=== PATIENT | female | born 1985 | race Caucasian/White ===

== ENCOUNTER 2018-04-17 09:03 | Emergency (ER) | payer OTHER, MEDICAID, SELFPAY ==
[2018-04-17 09:12] VITALS: BP 88/62; PULSE 55; RESP 20; TEMP 36.5; O2SAT 99; BMI 21.4
--- NOTE | 2018-04-17 09:18 | ED_ITS ---
HPI - Nausea/Vomiting/Diarrhea General Chief complaint: OB/Uterine Contractions Stated complaint: syncope Time Seen by Provider: 04/17/18 09:15 Source: patient and EMS Mode of arrival: EMS Limitations: no limitations History of Present Illness HPI Narrative: Otherwise healthy 32-year-old female with history of morning sickness with prior pregnancies presents to the emergency department with nausea vomiting since yesterday and a near syncopal episode today. She felt warm and flushed and lowered herself to the ground and EMS was called. On their arrival they found her systolic blood pressure in the 90s. They placed an IV and administered a few 100 cc of fluid prior to her arrival. She is a at 13 weeks and denies pelvic pain or vaginal bleeding or discharge. She is otherwise well MD complaint: nausea and vomiting Onset (ago): hour(s) Description of Vomiting: watery Description of Diarrhea: none Associated Abdominal Pain: No Relieving factors: none Exacerbating factors: none Associated symptoms: nausea/vomiting and fatigue Related Data Home Medications Medication Instructions Recorded Confirmed levonorgestrel [Mirena] #0 11/06/17 Previous Rx's Medication Instructions Recorded ondansetron 4 mg SUBLINGUAL Q6HP PRN #14 odt 11/06/17 nitrofurantoin monohyd/m-cryst 1 cap PO Q12H 7 Days #14 cap 04/17/18 [Macrobid] ondansetron [Zofran ODT] 4 mg PO Q6H PRN #14 tab 04/17/18 Allergies Allergy/AdvReac Type Severity Reaction Status Date / Time No Known Drug Allergies Allergy Verified 04/17/18 09:15 Review of Systems Review of Systems All systems reviewed & are unremarkable except as noted in HPI and below Constitutional Denies chills, Reports fatigue, Denies fever(s), Denies lethargy and Denies weakness Eyes Denies change in vision, Denies eye discharge, Denies irritation and Denies loss of vision ENT Ears, Nose, Mouth, and Throat: Denies change in voice, Denies neck pain and Denies sore throat Cardiovascular Denies chest pain, Reports syncope (Near syncope), Denies irregular heart rhythm , Denies lightheadedness, Denies palpitations, Denies dyspnea, Denies dyspnea on exertion and Denies orthopnea Respiratory Denies cough, Denies dyspnea, Denies dyspnea on exertion and Denies wheezing Gastrointestinal Gastrointestinal: Denies abdominal pain, Denies change in bowel habits, Denies diarrhea, Denies nausea and Denies vomiting Genitourinary Denies hematuria, Denies flank pain, Denies urinary incontinence and Denies urinary urgency Musculoskeletal Denies neck pain Integumentary/Breasts Denies pruritus, Denies erythema, Denies rash and Denies wounds Neurologic Denies confusion, Reports syncope (Near syncope), Denies loss of vision and Denies weakness Psychiatric Denies anxiety, Denies confusion, Denies depression, Denies homicidal ideation and Denies suicidal ideation Endocrine Reports fatigue and Denies palpitations Hematologic/Lymphatic Denies easy bruising Allergic/Immunologic Denies wheezing PFSH Surgical History Status post delivery Social History Smoking Status: Never smoker Exam Initial Vital Signs Initial Vital Signs: Vital Signs Temperature 97.7 F 04/17/18 09:12 Pulse Rate 55 L 04/17/18 09:12 Respiratory Rate 20 04/17/18 09:12 Blood Pressure 88/62 L 04/17/18 09:12 Pulse Oximetry 99 04/17/18 09:12 Const General: cooperative and well developed Nutritional Appearance: well nourished Orientation: alert, awake, oriented x3 and not confused HENNM Head: normocephalic and atraumatic Ears: external ears normal and TM's normal bilaterally Nose: external nose normal and No nasal discharge Face and sinus: sinuses nontender, face symmetric, no sinus tenderness and No dry mucous membranes Mouth: oral mucosae normal and moist mucous membranes Teeth and gingiva: dentition normal Throat: tonsils normal and uvula midline Eyes General: appearance normal, both eyes and all related structures Eyelids: eyelids normal Conjunctivae: conjunctivae normal Sclera: sclerae normal Pupils: PERRL EOM: EOM intact bilaterally Neck Neck: normal visual inspection, trachea midline, No lymphadenopathy, No midline deformity and No JVD Lymphatic: No lymphedema Chest Chest: normal inspection of the chest Resp Effort & Inspection: normal respiratory effort, able to speak in complete sentences, no respiratory distress and no use of accessory muscles Auscultation: clear to auscultation bilaterally, no rales, no rhonchi and no wheezes Cardio Rate: regular rate Rhythm: regular rhythm Heart Sounds: no click, no gallops, no murmurs and no rubs Pulses: normal peripheral pulses GI Inspection: non-distended Palpation: soft, no hepatosplenomegaly, No guarding, No pulsatile mass and No tender Auscultation: normal bowel sounds Back/Spine/Pelvis Back: No CVA tenderness Cervical Spine: cervical ROM normal and No pain with cervical ROM Thoracic/Lumbar Spine: thoracic and lumbar spine normal to inspection Skin General: no rashes or lesions noted, No jaundice and No petechiae Neuro General: alert, oriented x3, gait normal and no focal motor deficits Speech: speech normal Extrem General: full ROM, no clubbing, cyanosis or edema, no pedal edema and no calf tenderness Psych Appearance: well kempt Mental Status: mental status grossly normal Attitude: cooperative Thought Content: normal and suicidality Judgment: judgment good Course Orders Ordered: ED Orders 04/17/18 09:00 Complete Blood Count AUTO DIFF Stat Comprehensive Metabolic Panel Stat Ketones (Beta-Hydroxybutyrate) Stat 04/17/18 10:15 Urine Microscopic Stat Discontinued Medications Sodium Chloride (Normal Saline 0.9%) 1,000 mls @ 1,000 mls/hr IV BOLUS ONE Stop: 04/17/18 10:14 Last Infusion: 04/17/18 10:05 Dose: 0 mls/hr Admin: 04/17/18 09:49 Dose: 1,000 mls/hr Sodium Chloride (Normal Saline 0.9%) 1,000 mls @ 1,000 mls/hr IV BOLUS PRN PRN Reason: Fluid replacement Last Infusion: 04/17/18 11:58 Dose: 0 mls/hr Admin: 04/17/18 10:52 Dose: 1,000 mls/hr Ondansetron HCl (Zofran) 4 mg IV NOW ONE Stop: 04/17/18 09:16 Last Admin: 04/17/18 09:49 Dose: 4 mg Reevaluation(s) Reevaluation #1: Near complete resolution of symptoms after fluids and Zofran Vital Signs - 8 hr 04/17/18 09:12 04/17/18 09:54 04/17/18 11:05 Temperature 97.7 F Pulse Rate 55 L 66 62 Respiratory Rate 20 16 16 Blood Pressure 88/62 L Blood Pressure [Left Arm] 96/50 L 90/50 L Pulse Oximetry 99 100 100 04/17/18 12:07 Temperature Pulse Rate 77 Respiratory Rate 16 Blood Pressure 97/59 L Blood Pressure [Left Arm] Pulse Oximetry 99 MDM - Nausea/Vomiting/Diarrhea Lab Data Result diagrams: 04/17/18 09:00 04/17/18 09:00 Lab Results 04/17/18 04/17/18 04/17/18 Range/Units 09:00 09:00 10:15 WBC 9.3 (4.5-11.0) X10^3/uL RBC 4.37 (4.0-5.2) X10^6/uL Hgb 13.7 (12.0-16.0) g/dL Hct 39.0 (36-46) % MCV 89.3 (80-100) fL MCH 31.3 (26-34) PG MCHC 35.0 (30-36) % RDW 12.6 (11.6-14.8) % Plt Count 224 (150-400) X10^3/uL Neut % (Auto) 69.3 (50-75) % Lymph % (Auto) 22.6 L (25-40) % [place] % (Auto) 6.0 (3-14) % Eos % (Auto) 1.8 L (2-4) % Baso % (Auto) 0.3 (0-2) % Neut # (Auto) 6400 H (8353-7867) /uL Sodium 138 (137-145) mmol/L Potassium 3.6 (3.4-5.1) mmol/L Chloride 101 (98-107) mmol/L Carbon Dioxide 23 (22-32) mmol/L BUN 10 (7-17) mg/dL Creatinine 0.60 (0.52-1.04) mg/dL Estimated GFR > 60.0 (>60) mL/min BUN/Creatinine Ratio 16.7 (6-22) Glucose 109 H (70-100) mg/dL Calcium 9.8 (8.4-10.2) mg/dL Total Bilirubin 0.8 (0.2-1.3) mg/dL AST 18 (14-36) IU/L ALT 19 (9-52) IU/L Alkaline Phosphatase 49 (38-126) U/L Total Protein 7.9 (6.3-8.2) g/dL Albumin 4.5 (3.5-5.0) g/dL Globulin 3.4 (1.7-4.1) g/dL Albumin/Globulin Ratio 1.3 (1.0-2.8) Urine RBC None seen (0-5/HPF) Urine WBC 5-10/hpf H (0-5/HPF) Ur Squamous Epith Cells 5-10 /hpf H Urine Bacteria Moderate (10-30) H (None) Ur Culture Indicated? Cult not indicated Micro UA Comment Not Reportable Ketones 0.42 H (<0.27) mmol/L Discharge Plan Departure Patient Disposition: Home, Self-Care Clinical Impression: UTI (urinary tract infection), Vomiting Discharge Date/Time: 04/17/18 12:10 Interventions: ED Discharge Assessment Last Done: 04/17/18 12:07 Instructions: DI for Urinary Tract Infection (UTI) Activity Restrictions/Additional Instructions: 1. Drink plenty of fluids with frequent small sips. 2. For the next 24 hours a clear liquid diet is advised. After that please employ a brat diet which would include bananas, rice, apples, toast. 3. Please take medications as directed. 4. Please follow-up with your doctor in the next 1-2 days. Call the office for an appointment. 5. Please return to the emergency Department for any worsening or persistent symptoms, such as increasing pain or fever. Your prescriptions have been electronically transmitted to the [facility] here in [place] at your request Prescriptions: New ondansetron [Zofran ODT] 4 mg tablet,disintegrating 4 mg PO Q6H PRN (Reason: nausea and vomiting) Qty: 14 RF: 0 nitrofurantoin monohyd/m-cryst [Macrobid] 100 mg capsule 1 cap PO Q12H 7 Days Qty: 14 RF: 0 No Action levonorgestrel [Mirena] 1 EACH intrauterine device Qty: 0 RF: 0 ondansetron 4 MG tablet,disintegrating 4 mg Sublingual Q6HP PRNQty: 14 RF: 0
[2018-04-17 09:21] LABS: Add Manual Diff / Slide Review NO; Basophils Percent Auto 0.3 % (0-2); Eosinophils Percent Auto 1.8 % (2-4); Hemoglobin 13.7 g/dL (12.0-16.0); Lymphocytes Percent Auto 22.6 % (25-40); Mean Corpuscular Hemoglobin 31.3 PG (26-34); Mean Corpuscular Volume 89.3 fL (80-100); Neutrophils Absolute Auto 6400 /uL (3000-5900); Neutrophils Percent Auto 69.3 % (50-75); Platelet Count 224 X10^3/uL (150-400); Red Blood Cell Count 4.37 X10^6/uL (4.0-5.2); Red Cell Distribution Width 12.6 % (11.6-14.8); White Blood Cell Count 9.3 X10^3/uL (4.5-11.0)
[2018-04-17 09:23] LABS: HEMOLYSIS < 15 (0-50)
[2018-04-17 09:28] LABS: Alanine Aminotransferase 19 IU/L (9-52); Albumin 4.5 g/dL (3.5-5.0); Albumin Globulin Ratio 1.3 (1.0-2.8); Alkaline Phosphatase 49 U/L (38-126); Aspartate Aminotransferase 18 IU/L (14-36); BUN Creatinine Ratio 16.7 (6-22); Bilirubin Total 0.8 mg/dL (0.2-1.3); Blood Urea Nitrogen 10 mg/dL (7-17); Calcium 9.8 mg/dL (8.4-10.2); Carbon Dioxide 23 mmol/L (22-32); Chloride 101 mmol/L (98-107); Estimated Glomerular Filt Rate > 60.0 mL/min (>60); Globulin 3.4 g/dL (1.7-4.1); Glucose 109 mg/dL (70-100); Potassium 3.6 mmol/L (3.4-5.1); Sodium 138 mmol/L (137-145); Total Protein 7.9 g/dL (6.3-8.2)
[2018-04-17 09:46] LABS: Ketones (Beta-Hydroxybutyrate) 0.42 mmol/L (<0.27)
[2018-04-17] MEDS: ONDANSETRON 4 MG/2 ML INJ IV (09:49)
[2018-04-17] MEDS: SODIUM CHLORIDE 0.9% 1,000 ML 1000 ML IV ×2 (09:49→10:52)
[2018-04-17 09:54] VITALS: BP 96/50; PULSE 66; RESP 16; O2SAT 100
--- NOTE | 2018-04-17 10:13 | PC.NURSE ---
Patient reports she was feeling nauseous this morning and had a near syncopal episode at the grocery store today. Is 13 weeks with prior history of same with pregnancies. P:1.
--- NOTE | 2018-04-17 10:37 | PC.NURSE ---
Patient states she feels shaky is pale and hands are cold and white. I gave her a warm blanket. Can eat and drink per MD Dailey, starting with clear liquids working up to food. I gave her some water and juice and after tolerating that I gave her a sandwich, fruit, and crackers. Patient tolerated and states she feels better, less shaky.
[2018-04-17 10:43] LABS: RBC Urine None Seen (0-5/HPF)
[2018-04-17 10:56] LABS: Bacteria Urine Moderate (10-30); Culture Indicated Urine Cult Not Indicated; Squamous Epithelial Cell Urine 5-10 /HPF; WBC Urine 5-10/HPF (0-5/HPF)
[2018-04-17 11:05] VITALS: BP 90/50; PULSE 62; RESP 16; O2SAT 100
[2018-04-17 12:07] VITALS: BP 97/59; PULSE 77; RESP 16; O2SAT 99
== END 2018-04-17 12:10 | disposition home or self-care (01) ==
PROVIDERS: Emergency Provider Emergency Medicine; PCP Family Medicine
DX: O23.41 Unspecified infection of urinary tract in pregnancy, first trimester (principal); O21.9 Vomiting of pregnancy, unspecified; Z3A.13 13 weeks gestation of pregnancy
CPT/HCPCS: 36591; 80053; 81003; 81015; 82009; 85025; 96361; 96374; 99283; 99285; J2405

== ENCOUNTER → 2020-10-08 11:08 | Outpatient (CLI) | payer OTHER, MEDICAID, SELFPAY ==
[2020-10-08 11:45] LABS: COVID19 -Nasal RAPID Negative (Negative)
== END ==
PROVIDERS: Visit Provider Nurse Practitioner
DX: Z11.59 Encounter for screening for other viral diseases (principal)
CPT/HCPCS: 87635

== ENCOUNTER 2021-02-25 19:25 | Emergency (ER) | payer OTHER, MEDICAID, SELFPAY ==
[2021-02-25 19:31] VITALS: BP 136/86; PULSE 78; RESP 18; TEMP 37.1; O2SAT 99
--- NOTE | 2021-02-25 19:34 | ED.HA ---
HPI - Headache General Chief Complaint: Headache Stated Complaint: headache x3 days,not feeling good Time Seen by Provider: 02/25/21 19:34 Mode of arrival: Ambulatory Limitations: no limitations History of Present Illness HPI Narrative: 35F nonsmoker with history of anxiety or presents with a 2-3 days of gradually worsening right-sided headache. She states that it is a squeezing-type pain and seems to be worse with bright lights, loud noise and exertion. She has had nausea but denies any vomiting. She has no neck pain, fever or chills. She denies any trauma or recent injuries. She has had no chest pain or shortness of breath. She denies any recent illness nor any dietary or medication change. MD Complaint: headache Onset (ago): day(s) Onset description: gradual Location: right Severity: moderate Severity scale (1-10): 7 Quality: aching and throbbing Relieving factors: rest and dark room Exacerbating factors: light and noise Context: occurred at rest Associated symptoms: photophobia and sensitivity to sound Treatments prior to arrival: acetaminophen and ibuprofen Related Data Allergies Allergy/AdvReac Type Severity Reaction Status Date / Time No Known Drug Allergies Allergy Verified 10/08/20 10:49 Review of Systems Constitutional Constitutional: Denies chills, Denies fatigue, Denies fever(s), Denies frequent falls, Reports headache(s), Denies lethargy and Denies weakness Eyes Eyes: Denies change in vision, Denies eye discharge, Denies irritation and Denies loss of vision ENT Ears, Nose, Mouth, and Throat: Denies change in voice, Denies dizziness, Reports headache(s), Denies neck pain, Denies sore throat and Denies throat swelling Cardiovascular Cardiovascular: Denies chest pain, Denies irregular heart rhythm, Denies lightheadedness, Denies palpitations, Denies dyspnea, Denies dyspnea on exertion and Denies orthopnea Respiratory Respiratory: Denies cough, Denies dyspnea, Denies dyspnea on exertion and Denies wheezing Gastrointestinal Gastrointestinal: Denies abdominal pain, Denies change in bowel habits, Denies diarrhea, Denies nausea and Denies vomiting Musculoskeletal Musculoskeletal: Denies neck pain and Denies numbness Integumentary/Breasts Skin/Breast: Denies pruritus, Denies erythema, Denies rash and Denies wounds Neurologic Neurologic: Denies behavioral changes, Denies confusion, Denies dizziness, Denies frequent falls, Reports headache(s), Denies loss of vision, Denies numbness and Denies weakness Psychiatric Psychiatric: Denies anxiety, Denies behavioral changes, Denies confusion, Denies depression, Denies homicidal ideation and Denies suicidal ideation Endocrine Endocrine: Denies fatigue, Denies flushing and Denies palpitations Hematologic/Lymphatic Hematologic/Lymphatic: Denies easy bruising Allergic/Immunologic Allergic/Immunologic: Denies urticaria, Denies throat swelling and Denies wheezing Patient History Medical History No significant medical problems Surgical History Status post delivery Social History Smoking Status: Never smoker Smoking Status: Never smoker Substance Use Type: marijuana Exam Narrative Exam Narrative: GENERAL: [35] year old patient appears stated age. Well-nourished, well-developed patient, in mild distress. HEAD: Atraumatic. Normocephalic. EYES: Pupils equal round and reactive. Extraocular motions intact. No scleral icterus. No injection or drainage. ENT: Nose without bleeding, purulent drainage. Throat without erythema, tonsillar hypertrophy or exudate. Airway patent. NECK: Trachea midline. Non tender. No meningeal signs CARDIOVASCULAR: Regular rate and rhythm without murmurs, gallops, or rubs. RESPIRATORY: Clear to auscultation. Breath sounds equal bilaterally. No wheezes, rales, or rhonchi. GASTROINTESTINAL: Abdomen soft, non-tender, nondistended. EXTREMITIES: No edema or joint tenderness. BACK: Nontender without deformity or crepitance. No flank tenderness. NEURO: AOx3. SKIN: No rash or erythema of visible areas NIH Stroke Scale 1a. LOC: Patient is alert and keenly responsive (0) 1b. LOC Questions: Patient answers both LOC questions accurately (0) 1c. LOC Commands: Patient performs both tasks correctly (0) 2. Best Gaze: Normal (0) 3. Visual: No visual loss (0) 4. Facial palsy: Normal symmetrical movements (0) 5. Motor arm: No drift (0) 6. Motor leg: No drift (0) 7. Limb ataxia: Absent (0) 8. Sensory: Normal (0) 9. Best language: No aphasia; normal (0) 10. Dysarthria: Normal (0) 11. Extinction and inattention: No abnormality (0) NIHSS: 0 Initial Vital Signs Initial Vital Signs: Vital Signs Temperature 98.8 F 02/25/21 19:31 Pulse Rate 78 02/25/21 19:31 Respiratory Rate 18 02/25/21 19:31 Blood Pressure 136/86 02/25/21 19:31 Pulse Oximetry 99 02/25/21 19:31 Course Orders Ordered: ED Orders 02/25/21 20:24 CT head/brain wo con Stat Discontinued Medications Diphenhydramine HCl (Diphenhydramine 50 Mg/Ml Vial) 25 mg IV NOW ONE Stop: 02/25/21 19:58 Last Admin: 02/25/21 20:03 Dose: 25 mg Documented by: DANIELLA Sodium Chloride (Normal Saline 0.9%) 1,000 mls @ 1,000 mls/hr IV BOLUS ONE Stop: 02/25/21 20:56 Last Infusion: 02/25/21 21:30 Dose: 0 mls/hr Documented by: Admin: 02/25/21 20:03 Dose: 1,000 mls/hr Documented by: DANIELLA Ketorolac Tromethamine (Ketorolac 60 Mg/2 Ml Vial) 15 mg IV NOW ONE Stop: 02/25/21 21:11 Last Admin: 02/25/21 21:26 Dose: 15 mg Documented by: DANIELLA Metoclopramide HCl (Metoclopramide 10 Mg/2 Ml Inj) 10 mg IV NOW ONE Stop: 02/25/21 19:58 Last Admin: 02/25/21 20:03 Dose: 10 mg Documented by: DANIELLA Reevaluation(s) Reevaluation #1: patient has a near complete resolution of symptoms with above stated therapies Vital Signs Vital signs: Vital Signs - 8 hr 02/25/21 19:31 02/25/21 20:13 02/25/21 20:30 Temperature 98.8 F Pulse Rate 78 85 65 Respiratory Rate 18 Blood Pressure 136/86 Pulse Oximetry 99 100 100 02/25/21 20:53 02/25/21 21:00 Temperature Pulse Rate 74 74 Respiratory Rate 15 Blood Pressure 128/73 Pulse Oximetry 100 100 MDM - Headache Lab Data Labs: Point of Care Testing Test Results Negative Urine Dip Bedside Urine Glucose Negative Bedside Urine Bilirubin - Negative Bedside Urine Ketone - Negative Urine Specific [place] 1.030 Bedside Urine Occult Blood + Bedside Urine pH 6.0 Bedside Urine Protein - Negative Bedside Urine Urobilinogen - Negative Bedside Urine Nitrite - Negative Bedside Urine Leukocytes - Negative Esterase Imaging Data CT scan - head: Radiologist's Impression: [address] [id number] Scan ReportSigned Patient: Kim Martin [facility]#: [id number]: 1985Acct:[id number]/Sex: 35 / FDate of Service: 02/25/21Loc: EDAccession Number: [id number] Procedure: CT head/brain wo con Ordering Provider: Cy Dailey D.O. PROCEDURE: CT HEAD/BRAIN WO CON INDICATIONS: severe TECHNIQUE: Noncontrast 4.5 mm thick angled axial sections acquired from the foramen magnum to the vertex, with coronal and sagittal reformats. For radiation dose reduction, the following was used: automated exposure control, adjustment of mA and/or kV according to patient size. COMPARISON: None. FINDINGS: Image quality: Excellent. CSF spaces: Basal cisterns are patent. No extra-axial fluid collections. Ventricles are normal in size and shape. Brain: No midline shift. No intracranial masses or hemorrhage. Le-white matter interface is normal. Skull and face: Calvarium and visualized facial bones are intact, without suspicious lesions. Sinuses: Visualized sinuses and mastoids are clear. IMPRESSION: No acute intracranial abnormality. Dictated by: Anatoly Myers M.D. on 02/25/2021 at 21:23 Approved by: Anatoly Myers M.D. on 02/25/2021 at 21:24 [facility] Narrative Medical decision making narrative: Headache considerations include, but not limited to: Subarachnoid hemorrhage, but unlikely as patient denies sudden onset of pain, not worst of life, or neck pain Meningitis considered, but thought unlikely given lack of Brudzinski's, Kernig's sign, altered mental status or fever Giant cell arteritis considered, but thought unlikely given lack of unilateral findings, pain in cheondoism, vision change HTN Emergency considered, but thought unlikely given normal vitals Other serious diagnoses considered unlikely given lack of red flag findings such as sudden onset, increasing frequency, immunocompromise, systemic signs (fever, chills, stiff neck, or rash), focal neurologic findings, trauma, blood thinners, etc. Discharge Plan Departure Patient Disposition: Home Clinical Impression: Headache Qualifiers: Headache type: unspecified Headache chronicity pattern: acute headache Intractability: not intractable Qualified Code(s): R51.9 - Headache, unspecified Instructions: DI for Headache Activity Restrictions/Additional Instructions: *You have been diagnosed with [headache with reassuring physical exam and normal appearing CT scan] *What to do: *Take medications as directed *It would be acosta to establish with a primary care provider. I have included contact info with our [facility] Resource line to help you with that. Please call tomorrow morning. *Return to ER if you should have any new, worsening or concerning symptoms, such as [confusion, severe neck pain, fever greater than 101 F, neurologic symptoms such as blurred vision, trouble with speech or extremity numbness, tingling or weakness] Referrals: [facility] [Outside]
[2021-02-25] MEDS: METOCLOPRAMIDE 10 MG/2 ML INJ IV (20:03)
[2021-02-25] MEDS: SODIUM CHLORIDE 0.9% 1,000 ML 1000 ML IV (20:03)
[2021-02-25] MEDS: diphenhydrAMINE 50 MG/ML VIAL 25 MG IV (20:03)
[2021-02-25 20:13] VITALS: PULSE 85; O2SAT 100
--- NOTE | 2021-02-25 20:24 | DI.CT.S_ITS ---
PROCEDURE: CT HEAD/BRAIN WO CON INDICATIONS: severe TECHNIQUE: Noncontrast 4.5 mm thick angled axial sections acquired from the foramen magnum to the vertex, with coronal and sagittal reformats. For radiation dose reduction, the following was used: automated exposure control, adjustment of mA and/or kV according to patient size. COMPARISON: None. FINDINGS: Image quality: Excellent. CSF spaces: Basal cisterns are patent. No extra-axial fluid collections. Ventricles are normal in size and shape. Brain: No midline shift. No intracranial masses or hemorrhage. Le-white matter interface is normal. Skull and face: Calvarium and visualized facial bones are intact, without suspicious lesions. Sinuses: Visualized sinuses and mastoids are clear. IMPRESSION: No acute intracranial abnormality. Dictated by: Anatoly Myers M.D. on 02/25/2021 at 21:23 Approved by: Anatoly Myers M.D. on 02/25/2021 at 21:24
[2021-02-25 20:30] VITALS: PULSE 65; O2SAT 100
[2021-02-25 20:53] VITALS: BP 128/73; PULSE 74; PULSE 75; RESP 15; O2SAT 100
[2021-02-25 21:00] VITALS: PULSE 74; O2SAT 100
[2021-02-25] MEDS: KETOROLAC 60 MG/2 ML VIAL 15 MG IV (21:26)
== END 2021-02-25 22:01 | disposition home or self-care (01) ==
PROVIDERS: Emergency Provider Emergency Medicine
DX: R51.9 Headache, unspecified (principal); R11.0 Nausea
CPT/HCPCS: 36415; 70450; 81003; 81025; 96361; 96374; 96375; 99284; J1200; J1885; J2765

== ENCOUNTER → 2021-10-15 11:15 | Outpatient (CLI) | payer OTHER, MEDICAID, SELFPAY ==
[2021-10-15 13:36] LABS: COVID19 -Nasal RAPID Negative (Negative)
== END ==
PROVIDERS: Referring Provider Nurse Practitioner Family; Visit Provider Nurse Practitioner Family
DX: Z20.822 Contact with and (suspected) exposure to COVID-19 (principal)
CPT/HCPCS: 87635

== ENCOUNTER 2022-02-09 22:30 | Emergency (ER) | payer OTHER, MEDICAID, SELFPAY ==
[2022-02-09 22:37] VITALS: BP 119/81; PULSE 99; RESP 24; TEMP 37; O2SAT 99; BMI 29.6
--- NOTE | 2022-02-09 22:37 | DI.RAD.S_ITS ---
PROCEDURE: XR CHEST 1V INDICATIONS: short of breath TECHNIQUE: One view of the chest was acquired. COMPARISON: [facility], , CHEST 1 VIEW, 11/06/2017, 12:54. FINDINGS: Surgical changes and devices: None. Lungs and pleura: Lungs are clear. No pleural effusions or pneumothorax. Mediastinum: Mediastinal contours appear normal. Heart size is normal. Bones and chest wall: No suspicious bony lesions. Overlying soft tissues appear unremarkable. IMPRESSION: Normal for age, source of current shortness of breath symptoms is not seen. Dictated by: Dominick Schwarz M.D. on 02/09/2022 at 23:11 Approved by: Dominick Schwarz M.D. on 02/09/2022 at 23:11
--- NOTE | 2022-02-09 22:40 | ED.SOB ---
HPI - SOB/Dyspnea General Chief Complaint: Shortness of Breath/Dyspnea Stated Complaint: Difficulty breathing Time Seen by Provider: 02/09/22 22:37 Source: patient Mode of arrival: Ambulatory History of Present Illness HPI Narrative: Patient is a 36-year-old female no past medical history presenting today with increasing shortness of breath. She states that her son was sick last week with upper respiratory like symptoms. She says she thought she was getting some of those symptoms but has overall been doing well no fever or cough. She does have a history of allergy she has been taking sertraline for it. However tonight she was unable to lay flat due to increased difficulty breathing. She did cough up thick mucus plugs. She does have some conversational dyspnea. She says but she does use marijuana occasionally but is not a smoker. Related Data Home Medications Medication Instructions Recorded Confirmed No Known Home Medications 10/15/21 10/15/21 Allergies Allergy/AdvReac Type Severity Reaction Status Date / Time No Known Drug Allergies Allergy Verified 02/09/22 22:39 Review of Systems Review of Systems Narrative: GENERAL: Denies chills, fatigue, malaise, fever, sweats, travel HEENT: Denies sinus pain, ear pain, sore throat, difficulty swallowing, neck pain RESPIRATORY: See HPI CARDIOVASCULAR: Denies chest pain, palpitations, orthopnea, edema GASTROINTESTINAL: Denies nausea, vomiting, abdominal pain, diarrhea, constipation, melena. : Denies dysuria, frequency, incontinence, hematuria, urinary retention, flank pain. MUSCULOSKELETAL: Denies weakness, joint pain, or bony pain SKIN: No rash, no erythema, no pruritus NEUROLOGIC: Denies weakness, dizziness, headache, numbness, change in speech, confusion PSYCHIATRIC: No concerning psychosocial issues. 12 point review of systems is negative except for those stated above and HPI Patient History Medical History No significant medical problems Surgical History Status post delivery Social History Smoking Status: Never smoker Smoking Status: Never smoker Substance Use Type: marijuana Exam Initial Vital Signs Initial Vital Signs: Vital Signs Temperature 98.6 F 02/09/22 22:37 Pulse Rate 99 H 02/09/22 22:37 Respiratory Rate 24 02/09/22 22:37 Blood Pressure 119/81 02/09/22 22:37 Pulse Oximetry 99 02/09/22 22:37 GENERAL: 36-year-old female appears to have some conversational dyspnea HEENT: Head atraumatic,EOMI, pupils reactive, face symmetric, moist mucous membranes, slightly hoarce EARS: Right tympanic membrane visualized does appear to have some scarring noted no erythema. Canals clear. Left ear is within normal limits PHARYNX: No uvular swelling or deviation no enlarged tonsils or erythema no tonsillar exudate no cervical lymphadenopathy managing own secretions CARDIOVASCULAR: Regular rate and rhythm without murmurs, rubs or gallops. RESPIRATORY: Decreased breath sounds bilaterally no wheezing rales or rhonchi speaks a in 5-7 word sentences ABDOMEN: Soft, nontender. Normoactive bowel sounds all 4 quadrants. No guarding or rebound. EXTREMITIES: Normal range of motion, no clubbing or edema. Neurovascularly intact NEUROLOGICAL: Alert and oriented x4.Normal gait and speech. SKIN: Warm, dry, no laceration, no petechiae, no rashes or lesions. Course Orders Ordered: ED Orders 02/09/22 22:35 CBC Auto Diff [Complete Blood Count AUTO DIFF] Stat CMP [Comprehensive Metabolic Panel] Stat COVID19 -Nasal swab/Pre-Proc Stat 02/09/22 22:37 Chest [XR chest 1V] Stat Discontinued Medications Albuterol (Albuterol Hfa Prepack) 1 box MISC SEEINSTR ONE Stop: 02/10/22 00:13 Last Admin: 02/10/22 00:27 Dose: 1 box Documented by: MINI Albuterol/Ipratropium (Albuterol/Ipratropium 3 Ml Ampul) 3 ml INH NOW ONE Stop: 02/09/22 22:38 Last Admin: 02/09/22 22:47 Dose: 3 ml Documented by: DELMY Dexamethasone (Dexamethasone 10 Mg/Ml Vial) 10 mg IV NOW ONE Stop: 02/09/22 23:29 Last Admin: 02/09/22 23:36 Dose: 10 mg Documented by: MINI Vital Signs Vital signs: Vital Signs - 8 hr 02/09/22 22:37 02/09/22 22:47 02/10/22 00:29 Temperature 98.6 F Pulse Rate 99 H 65 77 Respiratory Rate 24 24 18 Blood Pressure 119/81 102/55 L Pulse Oximetry 99 100 100 MDM - SOB/Dyspnea Lab Data Result diagrams: 02/09/22 22:35 02/09/22 22:35 Labs: Lab Results 02/09/22 02/09/22 02/09/22 Range/Units 22:35 22:35 22:35 WBC 9.9 (4.5-11.0) X10^3/uL RBC 4.33 (4.0-5.2) X10^6/uL Hgb 12.8 (12.0-16.0) g/dL Hct 37.0 (36-46) % MCV 85.5 (80-100) fL MCH 29.6 (26-34) PG MCHC 34.6 (30-36) % RDW 13.2 (11.6-14.8) % Plt Count 243 (150-400) X10^3/uL Neut % (Auto) 72.3 (50-75) % Lymph % (Auto) 18.8 L (25-40) % [place] % (Auto) 6.9 (3-14) % Eos % (Auto) 1.7 L (2-4) % Baso % (Auto) 0.3 (0-2) % Neut # (Auto) 7100 H (1320-1683) /uL Lymph # (Auto) 1900 (1467-4730) /uL [place] # (Auto) 700 (0-900) /uL Eos # (Auto) 200 (0-450) /uL Baso # (Auto) 0 (0-100) /uL Sodium 138 (137-145) mmol/L Potassium 3.4 (3.4-5.1) mmol/L Chloride 104 (98-107) mmol/L Carbon Dioxide 24 (22-32) mmol/L BUN 15 (7-17) mg/dL Creatinine 0.77 (0.52-1.04) mg/dL Estimated GFR > 60.0 (>60) mL/min BUN/Creatinine Ratio 19.5 (6-22) Glucose 102 H (70-100) mg/dL Calcium 9.1 (8.4-10.2) mg/dL Total Bilirubin 0.6 (0.2-1.3) mg/dL AST 24 (14-36) IU/L ALT 14 (<35) IU/L Alkaline Phosphatase 70 (38-126) U/L Total Protein 7.9 (6.3-8.2) g/dL Albumin 4.6 (3.5-5.0) g/dL Globulin 3.3 (1.7-4.1) g/dL Albumin/Globulin Ratio 1.4 (1.0-2.8) SARS-CoV-2 (PCR) Negative (Negative) Imaging Data Chest x-ray: Radiologist's Impression: PROCEDURE:? XR CHEST 1V ? INDICATIONS:? short of breath ? TECHNIQUE:? One view of the chest was acquired.? ? COMPARISON:? [facility], , CHEST 1 VIEW, 11/06/2017, 12:54. ? FINDINGS:? ? Surgical changes and devices:? None.? ? Lungs and pleura:? Lungs are clear.? No pleural effusions or pneumothorax.? ? Mediastinum:? Mediastinal contours appear normal.? Heart size is normal.? ? Bones and chest wall:? No suspicious bony lesions.? Overlying soft tissues appear unremarkable.? ? IMPRESSION:? Normal for age, source of current shortness of breath symptoms is not seen. ? ? Dictated by: Dominick Schwarz M.D. on 02/09/2022 at 23:11 ? ? Approved by: Dominick Schwarz M.D. on 02/09/2022 at 23:11 MDM Narrative Medical decision making narrative: Patient is given DuoNeb treatment does seem to help some. She has no angioedema or sign of anaphylactic type reaction. She feels jittery after the albuterol. Throat is exam in no erythema or exudates. It sounds as though she is having some upper respiratory like symptoms could be related to allergies versus upper respiratory infection. At this time no need for antibiotics. Discharge Plan Departure Patient Disposition: Home Clinical Impression: Upper respiratory infection Instructions: DI for Viral Upper Respiratory Infection -- Adult Activity Restrictions/Additional Instructions: *You have been diagnosed with upper respiratory infection *What to do: At this time no need for antibiotics. *Continue to take medications as directed Albuterol inhaler 1-2 puffs every 4 hours if needed for shortness of breath *Follow up with your primary care provider in 2-3 days or call [phone] *Return to ER if you should have increasing shortness of breath, increase use of albuterol, fever, or any new, worsening or concerning symptoms Prescriptions: No Action No Known Home Medications 0RF Referrals: Miscellaneous,Doctor, [Primary Care Provider] -
[2022-02-09 22:47] VITALS: PULSE 65; RESP 24; O2SAT 100
[2022-02-09] MEDS: ALBUTEROL/IPRATROPIUM 3 ML AMPUL INH (22:47)
[2022-02-09 22:50] LABS: Add Manual Diff / Slide Review NO; Basophils Absolute Auto 0 /uL (0-100); Basophils Percent Auto 0.3 % (0-2); Eosinophils Absolute Auto 200 /uL (0-450); Eosinophils Percent Auto 1.7 % (2-4); Hemoglobin 12.8 g/dL (12.0-16.0); Lymphocytes Absolute Auto 1900 /uL (1100-4500); Lymphocytes Percent Auto 18.8 % (25-40); Mean Corpuscular HGB Conc 34.6 % (30-36); Mean Corpuscular Hemoglobin 29.6 PG (26-34); Mean Corpuscular Volume 85.5 fL (80-100); Monocytes Absolute Auto 700 /uL (0-900); Monocytes Percent Auto 6.9 % (3-14); Neutrophils Absolute Auto 7100 /uL (1500-7000); Neutrophils Percent Auto 72.3 % (50-75); Platelet Count 243 X10^3/uL (150-400); Red Blood Cell Count 4.33 X10^6/uL (4.0-5.2); Red Cell Distribution Width 13.2 % (11.6-14.8); White Blood Cell Count 9.9 X10^3/uL (4.5-11.0)
[2022-02-09 22:59] LABS: Alanine Aminotransferase 14 IU/L (<35); Albumin 4.6 g/dL (3.5-5.0); Albumin Globulin Ratio 1.4 (1.0-2.8); Alkaline Phosphatase 70 U/L (38-126); Aspartate Aminotransferase 24 IU/L (14-36); BUN Creatinine Ratio 19.5 (6-22); Bilirubin Total 0.6 mg/dL (0.2-1.3); Blood Urea Nitrogen 15 mg/dL (7-17); Calcium 9.1 mg/dL (8.4-10.2); Carbon Dioxide 24 mmol/L (22-32); Chloride 104 mmol/L (98-107); Estimated Glomerular Filt Rate > 60.0 mL/min (>60); Globulin 3.3 g/dL (1.7-4.1); Glucose 102 mg/dL (70-100); HEMOLYSIS < 15 (0-50); Potassium 3.4 mmol/L (3.4-5.1); Sodium 138 mmol/L (137-145); Total Protein 7.9 g/dL (6.3-8.2)
[2022-02-09 23:07] LABS: COVID19 -Nasal RAPID Negative (Negative)
[2022-02-09] MEDS: DEXAMETHASONE 10 MG/ML VIAL IV (23:36)
[2022-02-10] MEDS: ALBUTEROL HFA PREPACK 1 BOX MISC (00:27)
[2022-02-10 00:29] VITALS: BP 102/55; PULSE 77; RESP 18; O2SAT 100
== END 2022-02-10 00:31 | disposition home or self-care (01) ==
PROVIDERS: Emergency Provider Emergency Medicine
DX: J06.9 Acute upper respiratory infection, unspecified (principal); Z20.822 Contact with and (suspected) exposure to COVID-19
CPT/HCPCS: 36415; 71045; 80053; 85025; 87635; 94640; 96374; 99284; C9803; J1100

== ENCOUNTER 2024-04-18 09:31 | Emergency (ER) | payer OTHER, MEDICAID, SELFPAY ==
[2024-04-18 09:45] VITALS: BP 120/58; PULSE 85; RESP 20; TEMP 36.8; O2SAT 100; BMI 29.6
--- NOTE | 2024-04-18 10:16 | ED_ITS ---
HPI - Back Pain/Injury General Chief Complaint: Back Pain/Injury Stated Complaint: Rt side lower back pain Time Seen by Provider: 04/18/24 09:53 Source: patient History of Present Illness HPI Narrative: Patient healthy 38-year-old female presents today with right lower back pain. She reports that 2 days ago she fell on a skateboard she did okay initially however by yesterday afternoon started base of your pain. Hurts to move touch. No numbness or tingling down her leg no change in bowel or bladder habits. Has not taken anything for pain Related Data Previous Rx's Medication Instructions Recorded methocarbamol 750 mg tablet 1,500 mg (2 x 750 mg) PO Q12HR #20 04/18/24 tabs Allergies Allergy/AdvReac Type Severity Reaction Status Date / Time No Known Drug Allergies Allergy Verified 03/06/24 10:25 Patient History Medical History No significant medical problems Surgical History Status post delivery Social History Smoking Status: Never smoker Smoking Status: Never smoker Substance Use Type: marijuana Exam Initial Vital Signs Initial Vital Signs: Vital Signs Temperature 98.3 F 04/18/24 09:45 Pulse Rate 85 04/18/24 09:45 Respiratory Rate 20 04/18/24 09:45 Blood Pressure 120/58 L 04/18/24 09:45 Pulse Oximetry 100 04/18/24 09:45 Oxygen Delivery Method Room Air 04/18/24 09:45 GENERAL: Alert 38-year-old female CARDIOVASCULAR: peripheral pulses in tact, cap refill <2 sec RESPIRATORY: No respiratory distress, speaks in full sentences without difficulty BACK: No vertebral tenderness no step-off, right lower lumbar pain tender to touch EXTREMITIES: Normal range of motion, no clubbing or edema. Neurovascularly intact NEUROLOGICAL: Cranial nerves II through XII grossly intact. Normal gait and speech. SKIN: Warm, dry, no petechiae, no rashes or lesions. Course Orders Ordered: ED Orders 04/18/24 10:33 Urine Culture Stat Urine Microscopic Stat Discontinued Medications Ketorolac Tromethamine (Ketorolac 30 Mg/Ml Vial) 30 mg IM NOW ONE Stop: 04/18/24 10:27 Last Admin: 04/18/24 10:48 Dose: 30 mg Documented By: JOSEMANUEL Ondansetron HCl (Ondansetron 4 Mg/2 Ml Inj) 4 mg IV NOW PRN PRN Reason: Nausea And Vomiting Ondansetron HCl (Ondansetron 4 Mg Odt) 4 mg SL NOW PRN PRN Reason: Nausea And Vomiting Vital Signs Vital signs: Vital Signs - 8 hr 04/18/24 09:45 Temperature 98.3 F Pulse Rate 85 Respiratory Rate 20 Blood Pressure 120/58 L Pulse Oximetry 100 Oxygen Delivery Method Room Air MDM - Back Pain/Injury Lab Data Labs: Lab Results 04/18/24 Range/Units 10:33 Urine RBC 10-30/hpf H (0-5/HPF) Urine WBC 10-30/hpf H (0-5/HPF) Ur Squamous Epith Cells 0-1 /hpf (0-5/HPF) Urine Bacteria None seen (None) Ur Culture Indicated? Specimen cultured Vol Urine Centrifuged Low vol <10ml (spun) A Point of Care Testing Test Results Negative Urine Dip Bedside Urine Glucose Negative Bedside Urine Bilirubin - Negative Bedside Urine Ketone - Negative Urine Specific [place] 1.025 Bedside Urine Occult Blood +++ Bedside Urine pH 6.0 Bedside Urine Protein ++ 100 Bedside Urine Urobilinogen - Negative Bedside Urine Nitrite - Negative Bedside Urine Leukocytes +++ 500 Esterase MDM Narrative Medical decision making narrative: Patient is a 38-year-old female presents right-sided back pain after injury. No evidence of sciatica or cauda equina. Given Toradol here in the ED. urinalysis micro pending but no UTI symptoms. Discharge Plan Departure Patient Disposition: Home Clinical Impression: Back pain Instructions: DI for Back Spasm Activity Restrictions/Additional Instructions: *You have been diagnosed with back spasm *What to do: At this time increase movement as tolerated recommend heat and light touching. *Continue to take medications as directed--> Right aid Ibuprofen 600 mg every 6 hours for [id number] pain Tylenol 1000 mg every 6 hours for [id number] pain Methocarbamol 750-1500 mg every 12 hours if needed for muscle spasm (this does cause some drowsiness) *Follow up with your primary care provider in 2-3 days or call [phone] *Return to ER if you should have increasing pain loss of urine or stool or any new, worsening or concerning symptoms Prescriptions: New methocarbamol 750 mg tablet 1,500 mg PO Q12HR Qty: 20 0RF Referrals: Miscellaneous,Doctor, [Primary Care Provider] - Stand Alone Forms: Patient Portal/API
[2024-04-18] MEDS: KETOROLAC 30 MG/ML VIAL IM (10:48)
[2024-04-18 11:31] LABS: RBC Urine 10-30/HPF (0-5/HPF); Urine Volume Low Vol <10mL (spun)
[2024-04-18 11:32] LABS: Bacteria Urine None Seen; Culture Indicated Urine Specimen Cultured; Squamous Epithelial Cell Urine 0-1 /HPF (0-5/HPF); WBC Urine 10-30/HPF (0-5/HPF)
--- NOTE | 2024-04-18 15:22 | PC.NURSE ---
pt called and asked for her methocarbonal prescription to be sent to [facility] instead of [facility] Lilian. Dr. bowen aware. [facility] and called the patient back.
== END 2024-04-18 10:57 | disposition home or self-care (01) ==
PROVIDERS: Emergency Provider Emergency Medicine
DX: M54.50 Low back pain, unspecified (principal)
CPT/HCPCS: 81003; 81015; 81025; 87077; 87086; 87186; 96372; 99283; J1885

== ENCOUNTER → 2024-12-27 10:04 | Outpatient (CLI) | payer OTHER, SELFPAY ==
--- NOTE | 2024-12-27 10:05 | DI.RAD.S_ITS ---
PROCEDURE: XR HAND RT MIN 3V INDICATIONS: Pain hand base of right thumb-nontraumatic TECHNIQUE: 3 views of the hand(s) acquired. COMPARISON: None. FINDINGS: Bones: No fractures or dislocations. Carpal bones are normally aligned. No suspicious bony lesions. Soft tissues: No suspicious soft tissue calcifications. IMPRESSION: No acute bony abnormality. Dictated by: Tino Partida M.D. on 12/27/2024 at 13:21 Approved by: Tino Partida M.D. on 12/27/2024 at 13:22
== END ==
PROVIDERS: Referring Provider Nurse Practitioner Family; Visit Provider Nurse Practitioner Family
DX: M79.641 Pain in right hand (principal)
CPT/HCPCS: 73130